=== PATIENT | male | born 1975 | race Caucasian/White ===

== ENCOUNTER 2020-07-20 08:50 | Day surgery (SDC) | payer OTHER ==
[~2020-07-20] VITALS: Ht 182.9 cm; Wt 107.8 kg
[~2020-07-20 08:50] MED LIST: CRUTCH3 USE; CRUTCH4 USE; CYCL10 PO; IBUP200 PO; IBUP800 PO; NAPR500 PO; OXYACE5T PO; Percocet 5-3251 EACH PO; RXCLIN PO; TRAM50 PO; Zithromax250 MG PO
--- NOTE | 2020-07-20 10:24 | NUR ---
Ambulatory in Day Surgery History, Chart, Medications and Allergies reviewed before start of procedure. Lungs clear T/O to Auscultation. Patient confirms NPO status and agrees with scheduled surgery. Pre-Op teaching done. Pt verbalizes understanding. Patient States Post-Procedure ride home has been arranged.
--- NOTE | 2020-07-20 12:42 | NUR ---
Patient up to Ambulate independently. Gait steady. Dressing to procedure site clean, dry, intact with no visible drainage, swelling, erythema or bruising noted. IV DC'D, CATH INTACT AND PRESSURE DRESSING APPLIED. Patient States Post-Procedure ride home has been arranged. Discharge instructions reviewed with patient. Patient verbalizes understanding. Copy given to patient to take home. Discharged via wheelchair to private car for ride home.
== END 2020-07-20 12:42 | disposition home or self-care (01) ==
LOC: ORSCMMR 08:50 → ORD 10:15 → ORSCMMR 12:42
PROVIDERS: Surgery
PROC: 0JB80ZZ Excision of Abdomen Subcutaneous Tissue and Fascia, Open Approach (ICD-10-PCS; principal; 2020-07-20 10:15)
DX: D17.1 Benign lipomatous neoplasm of skin and subcutaneous tissue of trunk (principal); F17.210 Nicotine dependence, cigarettes, uncomplicated
CPT/HCPCS: 88304; J0690; J1100; J1885; J2250; J2405; J2704; J3010; J7120